=== PATIENT | female | born 1970 | race Caucasian/White ===

== ENCOUNTER 2019-04-09 13:54 | Emergency (ER) | payer OTHER ==
[~2019-04-09] VITALS: Ht 165.1 cm; Wt 81.7 kg
[~2019-04-09 13:54] MED LIST: CLEOCIN HCL150 MG PO; NORCO 5-325 TA1 EACH PO
[2019-04-09] MEDS ORDERED: NAPROSYN500 MG PO (15:29)
[2019-04-09] MEDS ORDERED: NORCO 5-325 TA1 EAC1 PO (15:29)
[2019-04-09 15:39] VITALS: BP 110/87
== END 2019-04-09 15:39 | disposition home or self-care (01) ==
LOC: M.ERS 13:54
DX: K04.7 Periapical abscess without sinus (principal); F17.210 Nicotine dependence, cigarettes, uncomplicated; Z88.1 Allergy status to other antibiotic agents; Z88.0 Allergy status to penicillin